=== PATIENT | female | born 1975 | race African-American/Black ===

== ENCOUNTER 2017-11-24 09:16 | Emergency (ER) | payer OTHER ==
[~2017-11-24] VITALS: Ht 167.6 cm; Wt 81.6 kg
[2017-11-24] MEDS ORDERED: ASPIR 8181 MG ORAL (09:30)
[2017-11-24] MEDS ORDERED: Lidocaine 2% Visc 15ml soln PO ONE (09:45)
[2017-11-24] MEDS ORDERED: Mylanta II UD 30ml ORAL ONE (09:45)
[2017-11-24] MEDS ORDERED: Dicyclomine HCl 10mg/5ml oral soln ORAL ONE (09:45)
[2017-11-24 09:58] VITALS: BP 158/101
[2017-11-24 10:17] LABS: BASOPHILS % (AUTO) 1.2 % (0.0-2.0); EOSINOPHILS % (AUTO) 0.2 % (0.0-3.0); HEMATOCRIT 44.5 % (37.0-47.0); HEMOGLOBIN 14.8 G/DL (12.0-16.0); LYMPHOCYTES % (AUTO) 14.8 % (20.0-45.0); MEAN CORPUSCULAR VOLUME 97 FL (80-99); MONOCYTES % (AUTO) 4.9 % (1.0-10.0); NEUTROPHILS % (AUTO) 78.9 % (45.0-75.0); PLATELET COUNT 286 K/UL (150-450); RED BLOOD COUNT 4.58 M/UL (4.20-5.40); WHITE BLOOD COUNT 12.1 K/UL (4.8-10.8)
[2017-11-24 10:27] LABS: ANION GAP 9 mmol/L (5-15); BLOOD UREA NITROGEN 15 mg/dL (7-18); CALCIUM 9.3 MG/DL (8.5-10.1); CARBON DIOXIDE 25 MMOL/L (21-32); CHLORIDE 106 MMOL/L (98-107); CREATININE 0.9 MG/DL (0.55-1.30); POTASSIUM 3.6 MMOL/L (3.5-5.1); SODIUM 140 MMOL/L (136-145)
[2017-11-24 10:31] LABS: ALANINE AMINOTRANSFERASE 25 U/L (12-78); ALBUMIN 4.1 G/DL (3.4-5.0); ALKALINE PHOSPHATASE 66 U/L (46-116); ASPARTATE AMINO TRANSFERASE 20 U/L (15-37); BILIRUBIN,TOTAL 0.3 MG/DL (0.2-1.0)
[2017-11-24] MEDS ORDERED: PEPCID AC20 M2 PO (10:42)
--- NOTE | 2017-11-24 10:46 | Emergency Room Report ---
History of Present Illness General Chief Complaint: Vomiting Source: Patient Present Illness HPI This patient c/o about a half day of frequent/persistent n/v, same as prior episodes gastritis. Pt. admits to drinking alcohol a bit too much, including yesterday. She has never been told she has pancreatitis. This seems to patient to be same as multiple prior episodes. Does not sound as though she has had EGD in the past. No change in bowels, no fever, no dysuria, no urgency, no vag d/c. No meds. No travel, no recent hosp. No PSH. Allergies: Coded Allergies: No Known Allergies (Unverified , 11/24/17) Patient History Past Medical History: see triage record Past Surgical History: none Pertinent Family History: none Social History: Reports: alcohol use Last Menstrual Period: last week Nursing Documentation-[facility] Past Medical History: No History, Except For Hx Gastrointestinal Problems: Yes - gastritis Review of Systems Constitutional: Reports: see HPI Eye: Reports: no symptoms ENT: Reports: no symptoms Respiratory: Reports: no symptoms Cardiovascular: Reports: no symptoms Gastrointestinal: Reports: abdominal pain, nausea, vomiting Genitourinary: Reports: no symptoms Musculoskeletal: Reports: no symptoms Skin: Reports: no symptoms Psychiatric: Reports: no symptoms Neurological: Reports: no symptoms Endocrine: Reports: no symptoms Hematologic/Lymphatic: Reports: no symptoms Allergic: Reports: no symptoms Physical Exam Vital Signs Date Time Temp Pulse Resp B/P (MAP) Pulse Ox O2 Delivery O2 Flow Rate FiO2 11/24/17 09:20 70 16 177/93 96 Room Air 11/24/17 09:58 98.2 98.2 Sp02 EP Interpretation: reviewed, normal General Appearance: normal inspection, well appearing, no apparent distress, alert, GCS 15, non-toxic Head: normocephalic, atraumatic Eyes: bilateral eye normal inspection, bilateral eye PERRL, bilateral eye EOMI ENT: normal ENT inspection, hearing grossly normal, normal pharynx, no angioedema, normal voice, moist mucus membranes Neck: normal inspection, full range of motion, supple, no meningismus, no bony tend Respiratory: normal inspection, lungs clear, normal breath sounds, no rhonchi, no respiratory distress, no retraction, no accessory muscle use, no wheezing Cardiovascular #1: normal inspection, regular rate, rhythm, no edema Gastrointestinal: normal inspection, normal bowel sounds, non tender, soft, no mass, non-distended, other - no abdominal tenderness; frequent retching Musculoskeletal: gait/station normal, normal range of motion Neurologic: normal inspection, alert, oriented x3, responsive, motor strength/ tone normal Psychiatric: normal inspection, judgement/insight normal, memory normal Suicide Risk Assessment: Suicidal Ideation: No Had intent to initiate attempt: No Pt's plan for suicide attempt: No Has means to complete attempt: No Skin: normal inspection, normal color, no rash, warm/dry Medical Decision Making Reaction to Intervention: Improved Diagnostic Impression: Primary Impression: Gastritis ER Course improved after IV fluids, IV Pepcid, IV Zofran reinforced information to patient that alcohol will cause/trigger gastritis Last Vital Signs Date Time Temp Pulse Resp B/P (MAP) Pulse Ox O2 Delivery O2 Flow Rate FiO2 11/24/17 09:58 98.2 59 18 158/101 100 Room Air 98.2 Disposition: HOME, SELF-CARE Condition: Improved Scripts Famotidine (PEPCID AC) 20 Mg Tablet 20 MG PO BID for 20 Days, TAB Prov: Nick Maya M.D. 11/24/17 Referrals: [facility] (PCP) Patient Instructions: Gastritis, Adult, [id number] Nick Maya M.D. Nov 24, 2017 10:46
[2017-11-24 12:10] VITALS: BP_SYST 144; BP_SYST 158; BP_DIAS 101; BP_DIAS 75
== END 2017-11-24 12:10 | disposition home or self-care (01) ==
LOC: EMR 09:55
DX: K29.70 Gastritis, unspecified, without bleeding (principal)
CPT/HCPCS: 36415; 80053; 80329; 83690; 84702; 85025; 96361; 96374; 96375; 96376; 99284; J2405; S0028